=== PATIENT | female | born 1955 | race Caucasian/White ===

== ENCOUNTER → 2022-10-07 | Outpatient (CLI) | payer MEDICARE, SELFPAY ==
--- NOTE | 2022-10-07 12:08 | EKG12_ITS ---
Test Reason : PRE-OP Blood Pressure : / mmHG Vent. Rate : 083 BPM Atrial Rate : 083 BPM P-R Int : 134 ms QRS Dur : 078 ms QT Int : 354 ms P-R-T Axes : 027 057 040 degrees QTc Int : 415 ms Normal sinus rhythm Normal ECG Confirmed by SAMANTHA VELAZQUEZ, ROLANDO ([id number]), clinical editor DIANA VANESSA ([id number]) on 10/07/2022 2:21:47 PM Referred By: Jamie Johnson Confirmed By:ROLANDO SINGH MD
[2022-10-07 13:37] LABS: Hematocrit 44.3 % (37-47); Mean Corp Hgb Conc 31.6 g/dL (32-36); Mean Corpuscular Hgb 29.3 pg (27.0-32.0); Mean Corpuscular Volume 92.7 fL (81-99); Mean Platelet Vol. 9.9 fl (6.2-12.0); Platelet Count 516 K/mm3 (150-450); RBC Distribution Width CV 14.6 % (11.6-14.6); RBC Distribution Width SD 49.7 fl (35.1-43.9); Red Blood Count 4.78 M/mm3 (4.2-5.4); White Blood Count 18.6 K/mm3 (4.4-11.0)
[2022-10-07 14:41] LABS: Anion Gap 5 (5-15); BUN 13 mg/dL (7-18); BUN/Creat Ratio 22.6 RATIO (10-20); Calcium,Total 9.2 mg/dL (8.5-10.1); Chloride 105 mmol/L (98-107); Creatinine, Serum 0.58 mg/dL (0.55-1.02); EST Glomerular Filtration Rate 112 mL/min (>60); Est Glom Filt Rate - Afr Amer 135 mL/min (>60); Glucose 88 mg/dL (74-106); Potassium 4.2 mmol/L (3.5-5.1); Sodium Level 137 mmol/L (136-145)
== END | disposition home or self-care (01) ==
PROVIDERS: Referring Provider Physician Assistant; Visit Provider Physician Assistant
DX: Z01.818 Encounter for other preprocedural examination (principal); Z01.810 Encounter for preprocedural cardiovascular examination
CPT/HCPCS: 36415; 80048; 85027; 93005

== ENCOUNTER → 2024-02-25 | Outpatient (CLI) | payer MEDICARE, SELFPAY ==
--- NOTE | 2024-02-25 13:00 | RAD_ITS ---
STUDY: BARIUM ENEMA. REASON FOR EXAM: Female, 68 years old. Incomplete colonoscopy. FLUOROSCOPY TIME (if supplied): ( 1 minute and 6 seconds ) minutes/seconds. 305.4 mGy. 8 images were obtained. 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 Following this, contrast was introduced retrograde through the colon. The entire colon was opacified. COMPARISON: None. FINDINGS: Scattered sigmoid diverticula. Scattered diverticula in the descending colon. No intraluminal filling defect is seen. There is redundancy of the sigmoid colon. No evidence of obstruction. RAD/Barium Enema No Air Cont IMPRESSION: Scattered sigmoid diverticula as well as scattered diverticula throughout the descending colon. Redundancy of the sigmoid colon. Electronically Signed: Satnam Carey MD at 13:42 EST ,
== END | disposition home or self-care (01) ==
PROVIDERS: PCP Family Medicine
DX: K57.30 Diverticulosis of large intestine without perforation or abscess without bleeding (principal)
CPT/HCPCS: 74270